=== PATIENT | female | born 1990 | race American Indian/Alaskan Native ===

== ENCOUNTER 2016-09-05 06:09 | Day surgery (SDC) | payer MEDICAID ==
[~2016-09-05 06:09] MED LIST: MARCAINE 0.5% INFILTRATI ONE; NACL 0.9% IR ONE
[2016-09-05] MEDS ORDERED: NACL BACTERIOSTATIC INFILTRATI ONE (06:50)
[2016-09-05] MEDS ORDERED: LACTATED RINGERS 1,000 ML IV SCH (07:00)
[2016-09-05] MEDS ORDERED: PEPCID PO NR (07:00)
[2016-09-05] MEDS ORDERED: VERSED IV NR (07:00)
[2016-09-05] MEDS ORDERED: DIPRIVAN 10 MG/ML IV ONE (07:21)
[2016-09-05] MEDS ORDERED: QUELICIN ONE (07:21)
[2016-09-05] MEDS ORDERED: XYLOCAINE MPF 2% ONE (07:21)
[2016-09-05] MEDS ORDERED: SUBLIMAZE ONE (07:21)
[2016-09-05] MEDS ORDERED: REGLAN ONE (07:21)
[2016-09-05] MEDS ORDERED: ZOFRAN ONE (07:21)
--- NOTE | 2016-09-05 07:25 | Short Stay Summary ---
Short Stay Documentation Date of service: 09/05/16 Narrative H&P: 26y/o with undesired fertility. Patient elects for permanent sterilization. - History Principal diagnosis: Undesired fertility H&P: obtained from office Past Medical History: No medical history Past Surgical History: No surgical history Social history: - Allergies and Medications Current Medications: Allergies No Known Allergies Allergy (Unverified 08/31/16 10:43) Home Medications Medication Instructions Recorded Confirmed Last Taken Type Norgestimate-Ethinyl Estradiol 1 each PO DAILY 08/31/16 08/31/16 09/04/16 History [Sprintec 28 Day Tablet] Vit-Fe Fumar-FA [ 1 tab PO QDAY 08/31/16 08/31/16 09/04/16 History Vitamin] Active Medications Famotidine (Pepcid) 20 mg PO PREOP NR Stop: 09/05/16 23:59 Last Admin: 09/05/16 06:59 Dose: 20 mg Lactated Ringer's (Lactated Ringers) 1,000 mls @ 100 mls/hr IV DIRECT HENRIETTA Last Admin: 09/05/16 07:05 Dose: 100 mls/hr Midazolam HCl (Versed) 2 mg IV PREOP NR Stop: 09/05/16 23:59 - Physical exam General appearance: no acute distress Integumentary: no rash HEENT: Atraumatic Lungs: Clear to auscultation Breasts: deferred Heart: Regular rate Gastrointestinal: normal Female Genitourinary: deferred Extremities: no ischemia Neurological: Normal gait - Brief post op/procedure progress note Date of procedure: 09/05/16 Pre-op diagnosis: undesired fertility Post-op diagnosis: same Procedure: Laparoscopic bilateral tubal ligation with Filshie clips Anesthesia: GETA Surgeon: KAROLINE ADAMS Estimated blood loss: none Pathology: none Condition: stable - Hospital course Hospital course: The patient was admitted that he is surgery and underwent a laparoscopic bilateral tubal ligation. Please see operative note for details of surgery. Her postoperative course was uneventful. - Disposition Condition at discharge: Good Disposition: DISCHARGED TO HOME OR SELFCARE Short Stay Discharge Plan Activity: no restrictions, other (pelvic rest for 1 week) Diet: regular Additional Instructions: Follow-up is not required Follow-up as needed Prescriptions: Ibuprofen [Motrin] 800 mg PO Q8HR PRN #60 tablet PRN Reason: Pain oxyCODONE /ACETAMINOPHEN [Percocet 5/325] 1 tab PO Q6HR PRN #30 tablet PRN Reason: Pain
--- NOTE | 2016-09-05 07:31 | Anesthesia Consultation ---
Anesthesia Consult and Med Hx - Airway Anesthetic Teeth Evaluation: Good ROM Head & Neck: Adequate Mental/Hyoid Distance: Adequate Mallampati Class: Class III Intubation Access Assessment: Possibly Difficult - Cardiac Exam Cardiac Exam: RRR - Pre-Operative Health Status ASA Pre-Surgery Classification: ASA1 Proposed Anesthetic Plan: General (4 months post-; first anesthetic-no family members have had anesthesia) - Central Nervous System Hx Psychiatric Problems: No - Other Systems Hx Alcohol Use: Yes (occas) Hx Cancer: No
--- NOTE | 2016-09-05 07:32 | Anesthesia Day of Surgery ---
Anesthesia Day of Surgery - Day of Surgery Patient Examined: Yes Patient H&P Reviewed: Yes Patient is NPO: Yes
[2016-09-05] MEDS ORDERED: NACL 0.9% IR ONE (07:58)
[2016-09-05] MEDS ORDERED: MARCAINE 0.5% INFILTRATI ONE ×2 (08:00)
[2016-09-05] MEDS ORDERED: LACTATED RINGERS 1,000 ML ONE (08:03)
--- NOTE | 2016-09-05 08:11 | Operative Report ---
Operative Report Operative Report: Date of surgery: 09/05/2016 Preoperative diagnosis: Unwanted fertility Postoperative diagnosis: Same as above Procedure: Laparoscopic bilateral tubal ligation with Filshie clips Surgeon: Vania Welch M.D. Anesthesia: General endotracheal anesthesia Estimated blood loss: Minimal Findings: Filmy pelvic adhesions to the fundus of the uterus; normal uterus tubes and ovaries Indication: 26-year-old 013 with unwanted fertility. The patient has elected for permanent sterilization. Procedure: The patient was taken to the operating room and given general endotracheal anesthesia without complication. The patient is prepped and draped in a normal sterile fashion. A bivalve speculum was placed in the patient's vagina and a single-tooth tenaculum was placed on the anterior lip of the cervix .A uterine acorn manipulato rwas placed, and the bivalve speculum was then removed. Attention was then turned to the patient's abdomen where a 5 mm infraumbilical skin incision was then made. A Veress needle was placed and peritoneal entry was verified water-filled syringe. Insufflation of the peritoneal cavity was performed with CO2 gas. A 5 mm trocar was placed and the laparoscope was then inserted. The patient was then placed in Trendelenburg. A 7 mm suprapubic skin incision was then made. Under direct visualization a 7 mm trocar was then placed. General survey of the patient's abdomen revealeddefault value. The fallopian tube was then followed out to the fimbriated end. A Filshie clip was placed, on the ampullary portion of the tube. This was performed on the contralateral side as well. The 7 mm trocar was then removed. The pneumoperitoneum was then released. The 5 mm trocar laparoscope was then removed. The skin incisions were then closed with 4-0 Monocryl. The incisions were injected with quarter percent Marcaine. Dressings were applied to the incision. The vaginal instruments were then removed atraumatically. Then successfully extubated and taken to the recovery room. All sponge laps and needle counts were correct 2.
[2016-09-05] MEDS ORDERED: ZOFRAN IV PRN (08:36)
[2016-09-05] MEDS ORDERED: PERCOCET 5/325 PO PRN (08:36)
--- NOTE | 2016-09-05 08:37 | Post Anesthesia Evaluation ---
- Post Anesthesia Evaluation Patient Participated: Yes Airway Patent: Yes Stable Respiratory Function: Yes Nausea/Vomiting: No Temp > 96.8F: Yes Pain Manageable: Yes Adequeate Hydration: Yes Anesthesia Complications: No Block Receding Appropriately: Not Applicable Patient on Ventilator: No
[2016-09-05] MEDS: DILAUDID IV PRN ×2 (08:38→08:50)
[2016-09-05] MEDS ORDERED: DEMEROL IV PRN ×2 (08:47→08:50)
[2016-09-05 09:38] VITALS: BP 102/87
== END 2016-09-05 10:09 | disposition home or self-care (01) ==
LOC: OR 06:09
PROVIDERS: ATTEND Obstetrics & Gynecology
DX: Z30.2 Encounter for sterilization (principal); N73.6 Female pelvic peritoneal adhesions (postinfective); Z72.89 Other problems related to lifestyle
CPT/HCPCS: 58671; 81025; J0330; J1170; J2175; J2250; J2405; J2704; J2765; J3010; J7120

== ENCOUNTER 2017-07-08 22:51 | Emergency (ER) | payer MEDICAID ==
--- NOTE | 2017-07-09 03:13 | Emergency Department Report ---
ED ENT HPI - General Chief complaint: Sore Throat Stated complaint: SORETHROAT Time Seen by Provider: 07/09/17 02:39 Source: patient Mode of arrival: Ambulatory Limitations: No Limitations - History of Present Illness Initial comments: 27-year-old female presents with complaint of sore throat. Patient is awake alert and oriented 3 speaking in full sentences no audible wheezing or stridor. States she has achy throat with white plaques in back of throat. Possible sick contacts. Has had symptoms for several days. MD complaint: sore throat Onset/Timin -: days(s) Location: throat Severity scale (0 -10): 4 Quality: aching Consistency: constant Worsens with: swallowing Context- Dental: history of dental caries Associated Symptoms: sore throat - Related Data Home Medications Medication Instructions Recorded Confirmed Last Taken Norgestimate-Ethinyl Estradiol 1 each PO DAILY 08/31/16 08/31/16 09/04/16 [Sprintec 28 Day Tablet] Vit-Fe Fumar-FA [ 1 tab PO QDAY 08/31/16 08/31/16 09/04/16 Vitamin] Previous Rx's Medication Instructions Recorded Last Taken Type Ibuprofen [Motrin] 800 mg PO Q8HR PRN #60 tablet 09/05/16 Unknown Rx oxyCODONE /ACETAMINOPHEN [Percocet 1 tab PO Q6HR PRN #30 tablet 09/05/16 Unknown Rx 5/325] Amoxicillin/Potassium Clav 1 each PO BID #14 tablet 07/09/17 Unknown Rx [Augmentin 875-125 Tablet] Dextromethorphan/Benzocaine 1 each PO Q4H PRN #1 box 07/09/17 Unknown Rx [Cepacol Sorethroat-Cough Rafaela] Ibuprofen [Motrin] 800 mg PO Q8HR PRN #30 tablet 07/09/17 Unknown Rx Allergies Allergy/AdvReac Type Severity Reaction Status Date / Time No Known Allergies Allergy Unverified 08/31/16 10:43 ED Dental HPI - General Chief complaint: Sore Throat Stated complaint: SORETHROAT Time Seen by Provider: 07/09/17 02:39 Source: patient Mode of arrival: Ambulatory Limitations: No Limitations - Related Data Home Medications Medication Instructions Recorded Confirmed Last Taken Norgestimate-Ethinyl Estradiol 1 each PO DAILY 08/31/16 08/31/16 09/04/16 [Sprintec 28 Day Tablet] Vit-Fe Fumar-FA [ 1 tab PO QDAY 08/31/16 08/31/16 09/04/16 Vitamin] Previous Rx's Medication Instructions Recorded Last Taken Type Ibuprofen [Motrin] 800 mg PO Q8HR PRN #60 tablet 09/05/16 Unknown Rx oxyCODONE /ACETAMINOPHEN [Percocet 1 tab PO Q6HR PRN #30 tablet 09/05/16 Unknown Rx 5/325] Amoxicillin/Potassium Clav 1 each PO BID #14 tablet 07/09/17 Unknown Rx [Augmentin 875-125 Tablet] Dextromethorphan/Benzocaine 1 each PO Q4H PRN #1 box 07/09/17 Unknown Rx [Cepacol Sorethroat-Cough Rafaela] Ibuprofen [Motrin] 800 mg PO Q8HR PRN #30 tablet 07/09/17 Unknown Rx Allergies Allergy/AdvReac Type Severity Reaction Status Date / Time No Known Allergies Allergy Unverified 08/31/16 10:43 ED Review of Systems ROS: Stated complaint: SORETHROAT Other details as noted in HPI Constitutional: denies: chills, fever Eyes: denies: eye pain, eye discharge, vision change ENT: throat pain. denies: ear pain Respiratory: denies: cough, shortness of breath, wheezing Cardiovascular: denies: chest pain, palpitations Endocrine: no symptoms reported Gastrointestinal: denies: abdominal pain, nausea, diarrhea Genitourinary: denies: urgency, dysuria, discharge Musculoskeletal: denies: back pain, joint swelling, arthralgia Skin: denies: rash, lesions Neurological: denies: headache, weakness, paresthesias Psychiatric: denies: anxiety, depression Hematological/Lymphatic: denies: easy bleeding, easy bruising ED Past Medical Hx - Past Medical History Previous Medical History?: No Hx HIV: No - Surgical History Past Surgical History?: No - Social History Smoking Status: Never Smoker Substance Use Type: None - Medications Home Medications: Home Medications Medication Instructions Recorded Confirmed Last Taken Type Norgestimate-Ethinyl Estradiol 1 each PO DAILY 08/31/16 08/31/16 09/04/16 History [Sprintec 28 Day Tablet] Vit-Fe Fumar-FA [ 1 tab PO QDAY 0208/31/16 09/04/16 History Vitamin] Ibuprofen [Motrin] 800 mg PO Q8HR PRN #60 tablet 09/05/16 Unknown Rx oxyCODONE /ACETAMINOPHEN [Percocet 1 tab PO Q6HR PRN #30 tablet 09/05/16 Unknown Rx 5/325] Amoxicillin/Potassium Clav 1 each PO BID #14 tablet 07/09/17 Unknown Rx [Augmentin 875-125 Tablet] Dextromethorphan/Benzocaine 1 each PO Q4H PRN #1 box 07/09/17 Unknown Rx [Cepacol Sorethroat-Cough Rafaela] Ibuprofen [Motrin] 800 mg PO Q8HR PRN #30 tablet 07/09/17 Unknown Rx ED Physical Exam - General Limitations: No Limitations General appearance: alert, in no apparent distress - Head Head exam: Present: atraumatic, normocephalic - Eye Eye exam: Present: normal appearance, PERRL, EOMI - ENT ENT exam: Present: mucous membranes moist - Expanded ENT Exam Expanded Mouth exam: Present: normal external inspection Throat exam: Positive: tonsillar erythema, tonsillar exudate (not river captain, uvula is midline) - Neck Neck exam: Present: normal inspection, full ROM, lymphadenopathy (some tender anterior cervical adenopathy) - Respiratory Respiratory exam: Present: normal lung sounds bilaterally. Absent: respiratory distress - Cardiovascular Cardiovascular Exam: Present: regular rate, normal rhythm. Absent: systolic murmur, diastolic murmur, rubs, gallop - GI/Abdominal GI/Abdominal exam: Present: soft, normal bowel sounds - Extremities Exam Extremities exam: Present: normal inspection - Back Exam Back exam: Present: normal inspection - Neurological Exam Neurological exam: Present: alert, oriented X3 - Psychiatric Psychiatric exam: Present: normal affect, normal mood - Skin Skin exam: Present: warm, dry, intact, normal color. Absent: rash ED Course Vital Signs 07/08/17 23:42 Temperature 98.2 F Pulse Rate 81 Respiratory 16 Rate Blood Pressure 134/82 O2 Sat by Pulse 100 Oximetry ED Medical Decision Making - Medical Decision Making A/P: Tonsillitis 1-Motrin when necessary, throat lozenges when necessary, Augmentin 10 day course 2-follow-up with primary care doctor Critical care attestation.: If time is entered above; I have spent that time in minutes in the direct care of this critically ill patient, excluding procedure time. ED Disposition Clinical Impression: Tonsillitis Disposition: DC-01 TO HOME OR SELFCARE Is pt being admited?: No Does the pt Need Aspirin: No Condition: Stable Instructions: Tonsillitis (ED) Prescriptions: Amoxicillin/Potassium Clav [Augmentin 875-125 Tablet] 1 each PO BID #14 tablet Dextromethorphan/Benzocaine [Cepacol Sorethroat-Cough Rafaela] 1 each PO Q4H PRN #1 box PRN Reason: Sore Throat Ibuprofen [Motrin] 800 mg PO Q8HR PRN #30 tablet PRN Reason: Pain Referrals: ALEJANDRO CAMARGO MD [Primary Care Provider] - 3-5 Days [facility] [place] [Outside] - 3-5 Days Forms: Work/School Release Form(ED) Time of Disposition: 03:12
[2017-07-09 03:38] VITALS: BP 129/86
== END 2017-07-09 03:00 | disposition home or self-care (01) ==
LOC: ED 22:51
DX: J03.90 Acute tonsillitis, unspecified (principal)
CPT/HCPCS: 87116; 87430; 99282

== ENCOUNTER 2019-01-11 20:39 | Emergency (ER) | payer MEDICAID ==
--- NOTE | 2019-01-11 21:07 | Event Note ---
ED Screening Note Date of service: 01/11/19 Time: 21:03 ED Screening Note: This is a 28 y.o. F. that presents with sensation of contact lens stuck in right eye. Reports burning sensation and photophobia. This initial assessment/diagnostic orders/clinical plan/treatment(s) is/are subject to change based on patients health status, clinical progression and re- assessment by fellow clinical providers in the ED. Further treatment and workup at subsequent clinical providers discretion. Patient/guardian urged not to elope from the ED as their condition may be serious if not clinically assessed and managed. Initial orders include: Miguel lamp evaluation ACC for further evaluation
[2019-01-11] MEDS ORDERED: FUL-GLO OP ONE (22:05)
[2019-01-11] MEDS ORDERED: TETRACAINE 0.5% OU ONE (22:05)
--- NOTE | 2019-01-11 22:06 | Emergency Department Report ---
Eye Injury/Foreign Body - HPI Duration: 1 Day Eye Location: Left Tetanus Status: Up to Date Eye Symptoms: Eye Pain: No, Blurred Vision: No, Eye Redness: Yes, Grinding/Hammering Metal: No, Used Eye Protection: No, Contact Lens Use: Yes, Recalls Injury: No, Photophobia: No Other History: Patient is a 28-year-old comes to the ER with right eye pain. She states that her contact stuck in her eye. She is not sure if the contact is in the eye or if she scratched her eye. Patient has done nothing to make the pain better other than where sunglasses. Patient is otherwise healthy and in no acute distress. ED Review of Systems ROS: Stated complaint: CONTACT LENS STUCK IN EYE/PAINFUL Other details as noted in HPI Comment: All other systems reviewed and negative ED Past Medical Hx - Past Medical History Previous Medical History?: No Hx HIV: No - Surgical History Additional Surgical History: tubiligation-2017 - Social History Smoking Status: Never Smoker Substance Use Type: None - Medications Home Medications: Home Medications Medication Instructions Recorded Confirmed Last Taken Type Norgestimate-Ethinyl Estradiol 1 each PO DAILY 08/31/16 08/31/16 09/04/16 History [Sprintec 28 Day Tablet] Vit-Fe Fumar-FA [ 1 tab PO QDAY 08/31/16 08/31/16 09/04/16 History Vitamin] Ibuprofen [Motrin] 800 mg PO Q8HR PRN #60 tablet 09/05/16 Unknown Rx oxyCODONE /ACETAMINOPHEN [Percocet 1 tab PO Q6HR PRN #30 tablet 09/05/16 Unknown Rx 5/325] Amoxicillin/Potassium Clav 1 each PO BID #14 tablet 07/09/17 Unknown Rx [Augmentin 875-125 Tablet] Dextromethorphan/Benzocaine 1 each PO Q4H PRN #1 box 07/09/17 Unknown Rx [Cepacol Sorethroat-Cough Rafaela] Ibuprofen [Motrin] 800 mg PO Q8HR PRN #30 tablet 07/09/17 Unknown Rx Benzonatate [Tessalon Perle] 100 mg PO TID PRN #20 capsule 05/13/18 Unknown Rx Fluticasone [Flonase] 1 spray NS QDAY #1 bottle 05/13/18 Unknown Rx Guaifenesin/Pseudoephedrne HCl 1 each PO BID #10 tab.er.12h 05/13/18 Unknown Rx [Guaifenesin-Pse ER 600-60 mg] Eye Injury Exam - Exam General: Vital signs noted. No distress. Alert and acting appropriately. EOMs are intact bilateral. Pupils equal round reactive to light. There is no pain with light directly on the pupil. Vision is unaffected. The globe is intact. There is no trauma to the face or eye. ED Course Vital Signs 01/11/19 21:03 Temperature 98.2 F Pulse Rate 65 Respiratory 18 Rate Blood Pressure 130/91 O2 Sat by Pulse 100 Oximetry ED Medical Decision Making - Medical Decision Making inc uptake fluor. at 6p of left eyes on conjuctiva pain dec with tetracaine no change in vision perrl eom intact dc home with dc plan of care Vital Signs 01/11/19 21:03 Temperature 98.2 F Pulse Rate 65 Respiratory 18 Rate Blood Pressure 130/91 O2 Sat by Pulse 100 Oximetry - Differential Diagnosis ro fb v abrasion eye Critical care attestation.: If time is entered above; I have spent that time in minutes in the direct care of this critically ill patient, excluding procedure time. ED Disposition Clinical Impression: Conjunctival abrasion Disposition: DC-01 TO HOME OR SELFCARE Is pt being admited?: No Does the pt Need Aspirin: No Condition: Stable Instructions: Corneal Abrasion (ED) Additional Instructions: med as ordered EVERY 4 HOURS IN AFFECTED EYE FOR 3 DAYS FOLLOW UP WITH EYE MD SATURDAY IF PAIN PERSISTS REFERRAL BELOW MOTRIN OR TYLENOL FOR PAIN Referrals: ISAAC CADE MD [Staff Physician] - 3-5 Days Time of Disposition: 22:58
[2019-01-11] MEDS ORDERED: TOBRADEX OD ONE (22:56)
[2019-01-12 00:39] VITALS: BP 138/84
== END 2019-01-12 00:39 | disposition home or self-care (01) ==
LOC: ED 20:39
DX: S05.01XA Injury of conjunctiva and corneal abrasion without foreign body, right eye, initial encounter (principal); Z98.51 Tubal ligation status; Z79.1 Long term (current) use of non-steroidal anti-inflammatories (NSAID); Z79.899 Other long term (current) drug therapy; Y29.XXXA Contact with blunt object, undetermined intent, initial encounter; Y93.89 Activity, other specified; Y92.89 Other specified places as the place of occurrence of the external cause; Y99.8 Other external cause status
CPT/HCPCS: 99283

== ENCOUNTER 2019-04-10 20:43 | Emergency (ER) | payer SELFPAY ==
--- NOTE | 2019-04-10 21:18 | Event Note ---
ED Screening Note ED Screening Note: lower abd pain for 2-3 days throbbing no N/V/D no fever no urinary sx LNMP: march 24 no PMHx no allergies to meds This initial assessment/diagnostic orders/clinical plan/treatment(s) is/are subject to change based on patients health status, clinical progression and re- assessment by fellow clinical providers in the ED. Further treatment and workup at subsequent clinical providers discretion. Patient/guardian urged not to elope from the ED as their condition may be serious if not clinically assessed and managed. Initial orders include: labs, UA
[2019-04-10 21:47] LABS: Basophils % (Auto) 0.7 % (0.0-1.8); Eosinophils # (Auto) 0.2 K/mm3 (0.0-0.4); Eosinophils % (Auto) 2.8 % (0.0-4.3); Hematocrit 42.5 % (30.3-42.9); Hemoglobin 14.2 gm/dl (10.1-14.3); Lymphocytes # (Auto) 1.4 K/mm3 (1.2-5.4); Lymphocytes % (Auto) 22.5 % (13.4-35.0); Mean Corpuscular HGB Conc 33 % (30-34); Mean Corpuscular Volume 101 fl (79-97); Monocytes # (Auto) 0.4 K/mm3 (0.0-0.8); Monocytes % (Auto) 7.3 % (0.0-7.3); Platelet Count 226 K/mm3 (140-440); Red Blood Count 4.23 M/mm3 (3.65-5.03); Red Cell Distribution Width 13.5 % (13.2-15.2)
[2019-04-10 22:00] LABS: Bacteria,Urine 1+ /HPF (Negative); Bilirubin,Urine NEG (Negative); Blood,Urine NEG (Negative); Color,Urine Yellow (Yellow); Mucus,Urine FEW /HPF; Protein,Urine <15 mg/dL mg/dL (Negative); Urobilinogen,Urine < 2.0 mg/dL (<2.0)
[2019-04-10 22:09] LABS: HCG Qualitative,Urine Negative (Negative)
[2019-04-10 22:10] LABS: Alanine Aminotransferase 15 units/L (7-56); Albumin 4.2 g/dL (3.9-5); BUN/Creatinine Ratio 7; Blood Urea Nitrogen 7 mg/dL (7-17); Hemolysis Index 9
[2019-04-11] MEDS ORDERED: ONDANSETRON 4 MG ODT TAB PO ONE (00:44)
[2019-04-11] MEDS ORDERED: IBUPROFEN 800 MG TAB PO ONE (00:44)
--- NOTE | 2019-04-11 01:50 | Emergency Department Report ---
ED General Adult HPI - General Chief complaint: Abdominal Pain Stated complaint: FLU SYMPTOMS/ABD PAIN Time Seen by Provider: 04/10/19 21:16 Source: patient Mode of arrival: Ambulatory Limitations: No Limitations - History of Present Illness Initial comments: Miss Nance is a 28-year-old -[place] female who presents with flulike symptoms cough congestion sore throat intermittent nausea vomiting,headache, there is no shortness of breath patient states subjective fever however temp is 99.1 in triage today patient is tolerating by mouth intake without nausea vomiting at this time is no dizziness no lightheadedness no abdominal pain or back pain. Onset/Timin -: days(s) Location: head, abdomen, upper extremity, lower extremity Severity scale (0 -10): 5 Quality: aching, other (generalized bodyaches ) Consistency: intermittent Improves with: none Worsens with: movement Associated Symptoms: cough, fever/chills, headaches, malaise, nausea/vomiting Treatments Prior to Arrival: none - Related Data Home Medications Medication Instructions Recorded Confirmed Last Taken Norgestimate-Ethinyl Estradiol 1 each PO DAILY 08/31/16 08/31/16 09/04/16 [Sprintec 28 Day Tablet] Vit-Fe Fumar-FA [ 1 tab PO QDAY 08/31/16 08/31/16 09/04/16 Vitamin] Previous Rx's Medication Instructions Recorded Last Taken Type Ibuprofen [Motrin] 800 mg PO Q8HR PRN #60 tablet 09/05/16 Unknown Rx oxyCODONE /ACETAMINOPHEN [Percocet 1 tab PO Q6HR PRN #30 tablet 09/05/16 Unknown Rx 5/325] Amoxicillin/Potassium Clav 1 each PO BID #14 tablet 07/09/17 Unknown Rx [Augmentin 875-125 Tablet] Dextromethorphan/Benzocaine 1 each PO Q4H PRN #1 box 07/09/17 Unknown Rx [Cepacol Sorethroat-Cough [place]] Ibuprofen [Motrin] 800 mg PO Q8HR PRN #30 tablet 07/09/17 Unknown Rx Benzonatate [Tessalon Perle] 100 mg PO TID PRN #20 capsule 05/13/18 Unknown Rx Fluticasone [Flonase] 1 spray NS QDAY #1 bottle 05/13/18 Unknown Rx Guaifenesin/Pseudoephedrne HCl 1 each PO BID #10 tab.er.12h 05/13/18 Unknown Rx [Guaifenesin-Pse ER 600-60 mg] Amoxicillin [Trimox CAP] 500 mg PO BID #20 capsule 03/31/19 Unknown Rx traMADol [Ultram] 50 mg PO Q6HR PRN #10 tablet 03/31/19 Unknown Rx Dicyclomine [Bentyl] 10 mg PO QID PRN #12 capsule 04/11/19 Unknown Rx Ibuprofen [Motrin 800 MG tab] 800 mg PO Q8HR PRN #30 tablet 04/11/19 Unknown Rx Ondansetron [Zofran Odt] 4 mg PO Q8HR PRN #12 tab.rapdis 04/11/19 Unknown Rx Allergies Allergy/AdvReac Type Severity Reaction Status Date / Time No Known Allergies Allergy Verified 03/31/19 13:24 ED Review of Systems ROS: Stated complaint: FLU SYMPTOMS/ABD PAIN Other details as noted in HPI Constitutional: chills, fever, malaise Eyes: denies: eye pain, eye discharge, vision change ENT: throat pain, congestion Respiratory: cough. denies: shortness of breath, wheezing Cardiovascular: denies: chest pain, palpitations Endocrine: no symptoms reported Gastrointestinal: abdominal pain, nausea, vomiting. denies: diarrhea, constipation, hematemesis, melena, hematochezia Genitourinary: denies: urgency, dysuria, frequency, hematuria, discharge Musculoskeletal: denies: back pain, joint swelling, arthralgia Skin: denies: rash, lesions Neurological: headache. denies: weakness, numbness, paresthesias, confusion, abnormal gait, vertigo Psychiatric: denies: anxiety, depression Hematological/Lymphatic: denies: easy bleeding, easy bruising ED Past Medical Hx - Past Medical History Previous Medical History?: No Hx HIV: No - Surgical History Past Surgical History?: Yes Additional Surgical History: tubiligation-2017 - Social History Smoking Status: Never Smoker Substance Use Type: None - Medications Home Medications: Home Medications Medication Instructions Recorded Confirmed Last Taken Type Norgestimate-Ethinyl Estradiol 1 each PO DAILY 08/31/16 08/31/16 09/04/16 History [Sprintec 28 Day Tablet] Vit-Fe Fumar-FA [ 1 tab PO QDAY 08/31/16 08/31/16 09/04/16 History Vitamin] Ibuprofen [Motrin] 800 mg PO Q8HR PRN #60 tablet 09/05/16 Unknown Rx oxyCODONE /ACETAMINOPHEN [Percocet 1 tab PO Q6HR PRN #30 tablet 09/05/16 Unknown Rx 5/325] Amoxicillin/Potassium Clav 1 each PO BID #14 tablet 07/09/17 Unknown Rx [Augmentin 875-125 Tablet] Dextromethorphan/Benzocaine 1 each PO Q4H PRN #1 box 07/09/17 Unknown Rx [Cepacol Sorethroat-Cough [place]] Ibuprofen [Motrin] 800 mg PO Q8HR PRN #30 tablet 07/09/17 Unknown Rx Benzonatate [Tessalon Perle] 100 mg PO TID PRN #20 capsule 05/13/18 Unknown Rx Fluticasone [Flonase] 1 spray NS QDAY #1 bottle 05/13/18 Unknown Rx Guaifenesin/Pseudoephedrne HCl 1 each PO BID #10 tab.er.12h 05/13/18 Unknown Rx [Guaifenesin-Pse ER 600-60 mg] Amoxicillin [Trimox CAP] 500 mg PO BID #20 capsule 03/31/19 Unknown Rx traMADol [Ultram] 50 mg PO Q6HR PRN #10 tablet 03/31/19 Unknown Rx Dicyclomine [Bentyl] 10 mg PO QID PRN #12 capsule 04/11/19 Unknown Rx Ibuprofen [Motrin 800 MG tab] 800 mg PO Q8HR PRN #30 tablet 04/11/19 Unknown Rx Ondansetron [Zofran Odt] 4 mg PO Q8HR PRN #12 tab.rapdis 04/11/19 Unknown Rx ED Physical Exam - General Limitations: No Limitations General appearance: alert, in no apparent distress - Head Head exam: Present: atraumatic, normocephalic - Eye Eye exam: Present: normal appearance, PERRL, EOMI Pupils: Present: normal accommodation - ENT ENT exam: Present: normal orophraynx, mucous membranes moist, TM's normal bilaterally - Neck Neck exam: Present: normal inspection, full ROM. Absent: tenderness, meningismus, lymphadenopathy, thyromegaly - Respiratory Respiratory exam: Present: normal lung sounds bilaterally. Absent: respiratory distress, wheezes, stridor, chest wall tenderness - Cardiovascular Cardiovascular Exam: Present: regular rate, normal rhythm, normal heart sounds. Absent: systolic murmur, diastolic murmur, rubs, gallop - GI/Abdominal GI/Abdominal exam: Present: soft, normal bowel sounds. Absent: distended, tenderness, guarding, rebound, rigid, bruit, hernia - Rectal Rectal exam: Present: deferred - Extremities Exam Extremities exam: Present: normal inspection, full ROM, normal capillary refill. Absent: tenderness, pedal edema, joint swelling, calf tenderness - Back Exam Back exam: Present: normal inspection, full ROM. Absent: tenderness, CVA tenderness (R), CVA tenderness (L), muscle spasm, rash noted - Neurological Exam Neurological exam: Present: alert, oriented X3, CN II-XII intact, normal gait - Psychiatric Psychiatric exam: Present: normal affect, normal mood - Skin Skin exam: Present: warm ED Course Vital Signs 04/10/19 04/11/19 21:21 00:57 Temperature 99.4 F Pulse Rate 97 H Respiratory 18 16 Rate Blood Pressure 117/94 O2 Sat by Pulse 97 Oximetry ED Medical Decision Making - Lab Data Result diagrams: 04/10/19 21:32 04/10/19 21:32 Labs 04/10/19 04/10/19 04/10/19 21:32 21:32 21:44 WBC 6.1 RBC 4.23 Hgb 14.2 Hct 42.5 MCV 101 H MCH 34 H MCHC 33 RDW 13.5 Plt Count 226 Lymph % (Auto) 22.5 [place] % (Auto) 7.3 Eos % (Auto) 2.8 Baso % (Auto) 0.7 Lymph # 1.4 [place] # 0.4 Eos # 0.2 Baso # 0.0 Seg Neutrophils % 66.7 Seg Neutrophils # 4.1 Sodium 139 Potassium 3.5 L Chloride 100.9 Carbon Dioxide 21 L Anion Gap 21 BUN 7 Creatinine 1.0 Estimated GFR > 60 BUN/Creatinine Ratio 7 Glucose 78 Calcium 9.0 Total Bilirubin 0.40 AST 18 ALT 15 Alkaline Phosphatase 66 Total Protein 7.0 Albumin 4.2 Albumin/Globulin Ratio 1.5 Lipase 29 Urine Color Yellow Urine Turbidity Clear Urine pH 6.0 Ur Specific [place] 1.020 Urine Protein <15 mg/dl Urine Glucose (UA) Neg Urine Ketones Neg Urine Blood Neg Urine Nitrite Neg Urine Bilirubin Neg Urine Urobilinogen < 2.0 Ur Leukocyte Esterase Neg Urine WBC (Auto) 1.0 Urine RBC (Auto) 1.0 U Epithel Cells (Auto) 1.0 Urine Bacteria (Auto) 1+ Urine Mucus Few Urine HCG, Qual Negative - Medical Decision Making Patient declines chest x-ray reclines rapid flu declines rapid strep labs noted normal this is likely URI versus viral syndrome plan Zofran ODT when necessary ibuprofen when necessary Bentyl when necessary continue to hydrate follow with PCP in 2-3 days return to ED should symptoms worsen patient verbalizes agreement and understanding the discharge plan DC'd to home in stable condition at this time Critical care attestation.: If time is entered above; I have spent that time in minutes in the direct care of this critically ill patient, excluding procedure time. ED Disposition Clinical Impression: Viral syndrome URI (upper respiratory infection) Qualifiers: URI type: unspecified viral URI Qualified Code(s): J06.9 - Acute upper respiratory infection, unspecified Disposition: DC-01 TO HOME OR SELFCARE Is pt being admited?: No Does the pt Need Aspirin: No Condition: Stable Instructions: Viral Syndrome (ED), Upper Respiratory Infection (ED) Prescriptions: Dicyclomine [Bentyl] 10 mg PO QID PRN #12 capsule PRN Reason: abdominal spasm Ibuprofen [Motrin 800 MG tab] 800 mg PO Q8HR PRN #30 tablet PRN Reason: pain fever Ondansetron [Zofran Odt] 4 mg PO Q8HR PRN #12 tab.rapdis PRN Reason: nausea and vomiting Referrals: PRIMARY MD CATALINA [Primary Care Provider] - 3-5 Days GIOVANNI STONE MD [Staff Physician] - 3-5 Days Forms: Work/School Release Form(ED) Time of Disposition: 02:00
[2019-04-11 06:25] VITALS: BP 111/90
== END 2019-04-11 02:30 | disposition home or self-care (01) ==
LOC: ED 20:43
DX: J06.9 Acute upper respiratory infection, unspecified (principal); B34.9 Viral infection, unspecified; Z98.51 Tubal ligation status; Z79.899 Other long term (current) drug therapy
CPT/HCPCS: 36415; 80053; 81001; 81025; 83690; 85025; Q0162